=== PATIENT | male | born 1950 | race Two or more races ===

== ENCOUNTER 2025-04-26 06:09 | Day surgery (SDC) | payer OTHER ==
[~2025-04-26] VITALS: Ht 177.8 cm; Wt 81.6 kg
[~2025-04-26 06:09] MED LIST: APIX2.5T PO; CARV25TA55 PO; FURO1TAB33 PO; GABA400C PO; METF-370 PO; OMEP-448 PO; PREG100C PO
[2025-04-26] MEDS ORDERED: ROCURONIUM 10MG/ML 10ML VIAL IV ONE (06:36)
[2025-04-26] MEDS ORDERED: SUCCINYLCHOLINE CHLORIDE 20 MG/ML 10ML VIAL IV ONE (06:36)
[2025-04-26] MEDS ORDERED: VANCOMYCIN HCL 1000 MG VL ONE (06:56)
[2025-04-26] MEDS ORDERED: TRANEXAMIC ACID 20 ML ONE (07:02)
[2025-04-26] MEDS ORDERED: fentaNYL CITRATE 5 ML ONE (07:13)
[2025-04-26] MEDS ORDERED: LIDOCAINE 2% TOPICAL JELLY 5 ML URJT TOP ONE (07:13)
[2025-04-26] MEDS ORDERED: SODIUM CHLORIDE LOCK 50 ML ONE (07:13)
[2025-04-26] MEDS ORDERED: ONDANSETRON HCL 4 MG/2 ML VIAL ONE (07:13)
[2025-04-26] MEDS ORDERED: LIDOCAINE 1% INJ PF 5ML AMP ONE (07:13)
[2025-04-26] MEDS ORDERED: HYDROmorphone HCL 2 MG/ML VL/or syr ONE (07:13)
[2025-04-26] MEDS ORDERED: PROPOFOL 10 MG/ML 20 ML IV ONE (07:13)
[2025-04-26] MEDS ORDERED: MIDAZOLAM HCL 2MG/2ML 2ml VIAL (1mg/ml) ONE (07:13)
[2025-04-26] MEDS ORDERED: fentaNYL CITRATE 100 MCG/2 ML VL ONE (07:13)
--- NOTE | 2025-04-26 07:35 | DVHHP2 ---
History Allergies: Coded Allergies: Penicillins (Unverified Allergy, Unknown, 04/23/25) Sulfa Antibiotics (Unverified Allergy, Unknown, 04/23/25) Zolpidem (Unverified Adverse Reaction, Severe, hallucinations, 04/23/25) Chief Complaint: Lumbar stenosis, Low back pain with neurogenic claudication Present Illness(Onset/Duration Patient is unable to stand for more than 2 minutes at a time due to bilateral leg neuropathies and radicular symptoms right greater than left, he is a demonstrating a staggered gait he is very dizzy with stand doing and he is having excruciating back pain. Noncontributory in case Past Surgical History: Other (Abdominal cancer surgery) Exam Exam General Appearance: No Apparent Distress HEENT: Normal ENT Inspection Neck: None, Other (No complaints of pain or limited range of motion) Respiratory: No Accessory Muscle Use, None, No Respiratory Distress, Other (Patient is speaking in full sentences) Cardiovascular: No Edema, Other (Skin is pink warm and dry) Gastrointestinal: Other (No complaints of nausea vomiting or diarrhea) Extremities: Normal capillary refill, Normal inspection, Normal range of motion, Other (Patient has 5/5 motor strength all four extremities) Neurologic: Alert, Dizziness, Other (Patient does state he gets very dizzy when he stands up this has been happening for many years) Cerebellar Function: Ataxia, Other (Patient states he has difficulty ambulating is related to the excruciating nerve pain in his feet) Reflexes: NOT DONE Skin: Other (Dry skin) Plan Additional comments: Patient arrives today for elective spine surgery with Dr Taiwo Membreno L3-5 posterior spinal decompression and fusion with L3-4, L4-5 posterior spinal interbody fusion with peek cage and bone graft with instrumentation. Patient has already picked up his postoperative medications Patient understands that the goals to discharge are that the patient is eating eating without nausea. drinking fluids without coughing or choking, voiding clear yellow urine, passing gas or having a bowel movement, ambulating safely with or without assistive devices, and patient is able to control pain with oral analgesia only. The risks/benefits/alternatives of surgery were explained to the patient in detail including but not limited to , stroke, paralysis, myocardial infarction, bleeding, infection, complications of anesthesia (dry mouth, sore throat, dental damage, respiratory depression, blindness), postoperative infection, incomplete relief of symptoms, recurrence of symptoms, damage to blood vessels, nerves and tendons, pulmonary embolism and possible need for repeat surgery in the future. Pain, damage to surrounding soft tissue structures, need for reoperation or future surgery, persistent pain/disability/deformity, bone graft collapse or extrusion of interbody device, instrumentation failure, need for instrumentation removal, dural tear, temporary or permanent nerve root damage, deep vein thrombosis, pulmonary embolism, were described to the patient in detail and the patient wishes to proceed. No guarantee of surgical outcome/improvement was implied. All of the questions were answered thoroughly and consents were obtained. Call with questions Shea Alicia [facility] Orthopaedic Spine Surgery nurse practitioner For Dr Lydia Membreno Patient was examined, chart reviewed, labs evaluated, and diagnostic studies and findings analyzed. Case was discussed with Dr. Taiwo Membreno who formulated the plan of care. This medical document was created using an electronic medical record system with [employer] dictation system. Although this document has been carefully reviewed, there might still be some phonetic and typographical errors. These areas are purely typographical due to imperfections of the software programs, and do not reflect any compromise in the patient's medical care. WALKER ALICIA NP Apr 26, 2025 07:35
[2025-04-26 08:10] VITALS: PULSE 70; RESP 13; TEMP 97.5; O2SAT 94
--- NOTE | 2025-04-26 08:21 | DVHOP2 ---
Operative Report - 2 Report Details Date: 04/26/25 Preop Diagnosis: lumbar spinal stenosis Postop Diagnosis: 1. same 2. labile blood pressure Surgeon: Guru Membreno MD Anesthesiologist: dr. flood Anesthesia: General Consent: The patient was informed of the risks and benefits of the procedure. These include but are not limited to complications of anesthesia, postoperative infection, incomplete relief of symptoms, recurrence of symptoms, damage to blood vessels, nerves and tendons, deep venous thrombosis, pulmonary embolism and possible need for repeat surgery in the future. Name of Procedure Performed see detailed note Procedure Details Procedure Details: The gentleman was pre operatively cleared and consented for elective lumbar spine surgery As per protocol, he was taken to the operating rooom and upon intubation before he was even transferred to operating table, his blood pressure fell to below 90mm Hg systolic and dr. Flood had to continuously give him phenylepherine to keep the BP elevated to an acceptable level. With his history of atrial fibrillation and daily nearly one liter per day alcohol usage, the risk of proceeding was unacceptable and the patient was extubated while still on the stretcher and taken to pACU. He will be discharged and require follow up with laster hand to stabilize his medical status. No surgery was performed on this patient. Condition Stable Disposition Home GURU MEMBRENO MD Apr 26, 2025 08:21
[2025-04-26] MEDS ORDERED: SUGAMMADEX 200mg/2ml Vial (100MG/ML) IV ONE (09:01)
[2025-04-26 09:15] VITALS: BP 128/84; PULSE 89; RESP 15; O2SAT 94
[2025-04-26] MEDS ORDERED: FOLIC ACID 1 MG, MAGNESIUM SULF SDV 50% 8 MEQ, MULTIPLE VITAMIN 10 ML, THIAMINE INJ 100... INJ SCH (18:00)
[2025-04-27 10:54] LABS: Hepatitis B Surface Antigen Negative (Negative)
== END 2025-04-26 10:39 | disposition home or self-care (01) ==
LOC: SUR 06:09
PROVIDERS: ATTEND Orthopaedic Surgery
DX: M48.061 Spinal stenosis, lumbar region without neurogenic claudication (principal); Z53.8 Procedure and treatment not carried out for other reasons; I10 Essential (primary) hypertension; I48.91 Unspecified atrial fibrillation; E11.40 Type 2 diabetes mellitus with diabetic neuropathy, unspecified; K21.9 Gastro-esophageal reflux disease without esophagitis; Z79.899 Other long term (current) drug therapy; Z85.028 Personal history of other malignant neoplasm of stomach; Z86.73 Personal history of transient ischemic attack (TIA), and cerebral infarction without residual deficits; Z86.2 Personal history of diseases of the blood and blood-forming organs and certain disorders involving the immune mechanism; Z95.820 Peripheral vascular angioplasty status with implants and grafts; Z98.890 Other specified postprocedural states; Z88.0 Allergy status to penicillin; Z88.2 Allergy status to sulfonamides; Z88.8 Allergy status to other drugs, medicaments and biological substances
CPT/HCPCS: 22633; 36415; 82962; 86703; 86706; 86803; 86850; 86900; 86901; 87340; J0330; J1100; J1171; J1956; J2250; J2405; J2704; J3010; J3373; J7050

== ENCOUNTER 2025-06-05 19:35 | Inpatient (IN) | payer OTHER ==
[~2025-06-05] VITALS: Ht 177.8 cm; Wt 80.6 kg
--- NOTE | 2025-06-05 20:39 | ED.PDOC ---
Back pain HPI HPI Comments 75 y/o M, with PMHx of stomach cancer (12 yrs ago), alcohol abuse presents to the ED for CC of lower back pain, difficulty walking. Patient states, he has been experiencing bilateral lumbar spine pain x2days. Patient relays, pain has been so severe that he has been unable to ambulate, feeling as if he is going to fall down when standing up. Patient reports, being seen at his PCP today (06/05/25), had an outpatient MRI of the lumbar spine on which showed severe spinal canal stenosis. They spoke to Dr. Martin who recommended that the patient come into the emergency department for admission. also stating that he just completed a benzodiazepine taper as he is trying to quit, given were recent heavy alcohol consumption. MRI report shows "There is a fat prominent epidural fat/epidural lipomatosis posteriorly within the lumbar spine". Patient denies any recent trauma, injury, or fall. Denies any bowel or bladder incontinence. States that he typically ambulates on his own without assistance. However, using a wheelchair over the past days due to difficulty with walking. Chief Complaint: Back Pain Time Seen by MD: 20:30 Reviewed Notes: Nurses Notes, Medications, Allergies Allergies: Coded Allergies: Penicillins (Unverified Allergy, Unknown, 04/23/25) Sulfa Antibiotics (Unverified Allergy, Unknown, 04/23/25) Zolpidem (Unverified Adverse Reaction, Severe, hallucinations, 04/23/25) Home Meds Reported Medications Apixaban Base (ELIQUIS) 2.5 Mg Tab, 2.5 MG PO BID, TAB 04/23/25 Omeprazole (Omeprazole Dr) 40 Mg Cap, 40 MG PO DAILY, CAP 04/23/25 Metformin Hydrochloride (Metformin Hcl) 500 Mg Tab, 500 MG PO BID, TAB 04/23/25 Carvedilol (Carvedilol) 25 Mg Tab, 25 MG PO BID, TAB 04/23/25 Furosemide (Lasix) 20 Mg Tb, 20 MG PO DAILY, TAB 04/23/25 Gabapentin (Neurontin) 400 Mg Cap, 800 MG PO TID, CAP 04/23/25 Pregabalin (Lyrica) 100 Mg Cap, 100 MG PO TID, CAP 04/23/25 Information Source: Patient Mode of Arrival: Ambulatory Timing: Days Duration: Since onset Location of Back pain: (B) Lumbar Severity: Moderate Prehospital treatment: None Onset: Spontaneous History of: Chronic Back Pain, Cancer Modifying Factors: Nothing Associated signs and symptoms: None Past Medical History PAST MEDICAL HISTORY: Cancer Surgical History: Denies all surgeries Family History Family History: Unknown Social History Smoker: Non-Smoker Alcohol: Denies ETOH Use Drugs: Denies Drug Use Lives In: Home Constitutional: denies: chills, diaphoresis, fatigue, fever, malaise, sweats, weakness, others EENTM: denies: blurred vision, double vision, ear bleeding, ear discharge, ear drainage, ear pain, ear ringing, eye pain, eye redness, hearing loss, mouth pain, mouth swelling, nasal discharge, nose bleeding, nose congestion, nose pain, photophobia, tearing, throat pain, throat swelling, voice changes, others Respiratory: denies: cough, hemoptysis, orthopnea, SOB at rest, shortness of breath, SOB with excertion, stridor, wheezing, others Cardiovascular: denies: chest pain, dizzy spells, diaphoresis, Dyspnea on exertion, edema, irregular heart beat, left arm pain, lightheadedness, palpitations, PND, syncope, others Gastrointestinal: denies: abdomen distended, abdominal pain, blood streaked bowels, constipated, diarrhea, dysphagia, difficulty swallowing, hematemesis, melena, nausea, poor appetite, poor fluid intake, rectal bleeding, rectal pain, vomiting, others Genitourinary: denies: burning, dysuria, flank pain, frequency, hematuria, incontinence, penile discharge, penile sore, pain, testicle pain, testicle swelling, urgency, others Neurological: denies: dizziness, fainting, headache, left sided numbness, left sided weakness, numbness, paresthesia, pre-existing deficit, right sided numbness, right sided weakness, seizure, speech problems, tingling, tremors, weakness, others Musculoskeletal: reports: back pain; denies: gout, joint pain, joint swelling, muscle pain, muscle stiffness, neck pain, others Integumetry: denies: bruises, change in color, change in hair/nails, dryness, laceration, lesions, lumps, rash, wounds, others Allergic/Immunocompromised: denies: Difficulty Healing, Frequent Infections, Hives, Itching, others Hematologic/Lymphatic: denies: anemia, blood clots, easy bleeding, easy bruising, swollen glands, others Endocrine: denies: excessive hunger, excessive sweating, excessive thirst, excessive urination, flushing, intolerance to cold, intolerance to heat, unexplained weight gain, unexplained weight loss, others Psychiatric: denies: anxiety, bipolar disorder, depression, hopeless, panic disorder, schizophrenia, sleepless, suicidal, others All Other Systems: Reviewed and Negative Physical Exam General Appearance: No Apparent Distress, Normal HEENT: Normal ENT Inspection, Pharynx Normal Neck: Full Range of Motion, Non-Tender, Normal, Normal Inspection Respiratory: Chest Non-Tender, Lungs Clear, No Accessory Muscle Use, No Respiratory Distress, Normal Breath Sounds Cardiovascular: No Edema, No Murmur, No Gallop, Normal Peripheral Pulses, Regular Rate/Rhythm Breast Exam: Deferred Gastrointestinal: No Organomegaly, Non Tender, No Pulsatile Mass, Normal Bowel Sounds, Soft Genitalia: Deferred Pelvic: Deferred Rectal: Deferred Extremities: No calf tenderness, Normal capillary refill, Normal inspection, Normal range of motion, Non-tender, No pedal edema Musculoskeletal : Extremity Location: Back (bilateral lower lumbar parapsinal muscle ttp) Apperance: Normal Neurologic: Alert, manager pricing II-XII nml as Tested, No Motor Deficits, Normal Affect, Normal Mood, No Sensory Deficits Cerebellar Function: Normal Reflexes: Normal Skin: Dry, Normal Color, Warm Lymphatic: No Adenopathy Was a procedure done? Was a procedure done?: No Back Pain Differential Dx Differential Diagnosis: Musculoskeletal Pain, Other (Herniated disc, spinal cord compression, sciatica) X-Ray, Labs, Meds, VS Vital Signs Date Time Temp Pulse Resp B/P (MAP) Pulse Ox O2 Delivery O2 Flow Rate FiO2 06/05/25 21:51 98.2 92 14 111/75 (87) 94 98.2 06/05/25 19:35 97.4 95 16 105/77 95 97.4 Lab Test 06/05/25 20:40 06/05/25 20:31 Range/Units White Blood Count 5.7 4.4-10.8 10^3/uL Red Blood Count 4.49 L 4.5-5.90 10^6/uL Hemoglobin 15.2 13.5-17.5 g/dL Hematocrit 45.4 41.0-53.0 % Mean Corpuscular Volume 101.1 H 80.0-100.0 fL Mean Corpuscular Hemoglobin 33.8 H 28.0-32.0 pg Mean Corpuscular Hemoglobin Concent 33.4 32.0-36.0 g/dL Red Cell Distribution Width 15.9 H 11.8-14.3 % Platelet Count 182 140-450 10^3/uL Mean Platelet Volume 9.2 6.9-10.8 fL Neutrophils (%) (Auto) 59.0 37.0-80.0 % Lymphocytes (%) (Auto) 24.4 10.0-50.0 % Monocytes (%) (Auto) 11.0 0.0-12.0 % Eosinophils (%) (Auto) 4.9 0.0-7.0 % Basophils (%) (Auto) 0.7 0.0-2.0 % Neutrophils # (Auto) 3.4 1.6-8.6 10 ^3/uL Lymphocytes # (Auto) 1.4 0.4-5.4 10 ^3/uL Monocytes # (Auto) 0.6 0-1.3 10 ^3/uL Eosinophils # (Auto) 0.3 0-0.8 10 ^3/uL Basophils # (Auto) 0 0-0.2 10 ^3/uL Nucleated Red Blood Cells 0.1 % Sodium Level 140 136-145 mmol/L Potassium Level 3.7 3.5-5.1 mmol/L Chloride Level 99 98-107 mmol/L Carbon Dioxide Level 27 20-31 mmol/L Anion Gap 14 5-15 Blood Urea Nitrogen 13 9-23 mg/dL Creatinine 1.11 0.700-1.30 mg/dL Glomerular Filtration Rate Calc 69 >90 mL/min BUN/Creatinine Ratio 11.7 10.0-20.0 Serum Glucose 140 H 74-106 mg/dL Calcium Level 9.7 8.7-10.4 mg/dL Urine Color Pending Urine Clarity Pending Urine pH Pending Urine Specific [place] Pending Urine Protein Pending Urine Ketones Pending Urine Blood Pending Urine Nitrite Pending Urine Bilirubin Pending Urine Urobilinogen Pending Urine Leukocyte Esterase Pending Urine RBC Pending Urine Microscopic WBC Pending Urine Squamous Epithelial Cells Pending Urine Bacteria Pending Urine Glucose Pending Time of 1ST Reevaluation: 21:00 Reevaluation 1ST: Unchanged Patient Education/Counseling: Diagnosis, Treatment Family Education/Counseling: Diagnosis, Treatment SEPSIS Sepsis Screen Date sepsis recognized/suspect: Jun 05, 2025 Time Sepsis recognized/suspect: 1934 Recent Procedure: No On Antibiotic Therapy: No Respiratory Rate >20: No Heart Rate >90: No Temp<36 C (96.8 F) or >38.3 C: No SBP <90 or MAP <65 mmHG: No New Acute Mental Status Change: No Is the patient on CPAP, BIPAP,: No Physician Orders Urinalysis (06/05/25 20:31) Vital Signs Date Time Temp Pulse Resp B/P (MAP) Pulse Ox O2 Delivery O2 Flow Rate FiO2 06/05/25 21:51 98.2 92 14 111/75 (87) 94 98.2 06/05/25 19:35 97.4 95 16 105/77 95 97.4 Laboratory Tests Test 06/05/25 20:40 White Blood Count 5.7 10^3/uL (4.4-10.8) Departure 1 Departure Time of Disposition: 22:07 (75-year-old male with past medical history of alcohol abuse, distant gastric cancer who is now presenting for lower back pain, difficulty walking over the past few days. Patient has no bowel or bladder incontinence. Is able to lift his legs off the wheelchair, however, difficulty with standing upright on his own. An MRI of the lumbar spine was performed which shows that the patient has prominent fat, possible lipomatosis causing severe spinal canal stenosis in the lumbar spine. This could explain the patient's symptoms. Was already evaluated earlier today at an urgent care when he had the MRI , they discussed this with Dr. Martin who recommended that the patient come to the hospital for evaluation, admission. Patient will be admitted for further workup and management. Discussed the case for admission with Beny Adamson.) Impression: Primary Impression: Lumbar sprain Additional Impressions: Difficulty walking Lumbar spinal stenosis Disposition: ADMITTED INPATIENT Admit to: Med Surg Condition: Stable Critical Care Note Critical Care Time?: No Stability Stability form required: No Heart Score Heart Score: Heart Score Response (Comments) Value History N/A 0 EKG N/A 0 Age N/A 0 Risk Factors N/A 0 Troponin N/A 0 Total 0 I personally scribed for ISAURA BLACKBURN MD ([email or web address]) on 06/05/25 at 20:39. Electronically submitted by Bárbara Michele ([email or web address]). ISAURA BLACKBURN MD Jun 05, 2025 20:39
[2025-06-05 21:23] LABS: Hematocrit 45.4 % (41.0-53.0); Hemoglobin 15.2 g/dL (13.5-17.5); Mean Corpuscular Hemoglobin 33.8 pg (28.0-32.0); Mean Corpuscular Volume 101.1 fL (80.0-100.0); Nucleated Red Blood Cells % 0.1 %
[2025-06-05 21:27] LABS: Chloride 99 mmol/L (98-107); Potassium 3.7 mmol/L (3.5-5.1); Sodium 140 mmol/L (136-145)
[2025-06-05 21:28] LABS: Anion Gap 14 (5-15); Carbon Dioxide 27 mmol/L (20-31)
[2025-06-05 21:29] LABS: Calcium 9.7 mg/dL (8.7-10.4)
[2025-06-05 21:34] LABS: BUN/Creatinine Ratio 11.7 (10.0-20.0); Blood Urea Nitrogen 13 mg/dL (9-23); Glucose 140 mg/dL (74-106)
[2025-06-05 23:45] LABS: Urine Protein, UAD TRACE (Negative)
[2025-06-06] VITALS (9 sets, daily range): BP systolic 94–135; BP diastolic 60–82; PULSE 70–94; RESP 16–18; TEMP 97.2–98.6; O2SAT 85–97
[2025-06-06] MEDS ORDERED: NITROGLYCERIN 0.4 MG SL TAB SL PRN (00:45)
[2025-06-06] MEDS ORDERED: DEXTROSE (50%) 50ML SYRG IV PRN (00:45)
[2025-06-06] MEDS ORDERED: ONDANSETRON HCL 4 MG/2 ML VIAL IV PRN (00:45)
[2025-06-06] MEDS ORDERED: ACETAMINOPHEN 325 MG TAB PO PRN (00:45)
[2025-06-06] MEDS ORDERED: MORPHINE SULFATE INJ 2 MG/ml SYRG IV PRN (00:45)
[2025-06-06] MEDS ORDERED: HYDROcodone-ACET 5/325MG TAB PO PRN (00:45)
[2025-06-06] MEDS ORDERED: DOCUSATE SOD 100 MG CAP PO PRN (00:45)
--- NOTE | 2025-06-06 03:47 | DVHHP2 ---
MARIEL NAVARRO JAVA DEVELOPER WITH SECURITY CLEARANCE 06/06/25 0347: History of Present Illness Reason for Visit: Back pain with generalized weakness History of Present Illness 75-year-old male with past medical history of alcohol dependence, AFib on Eliquis, hypertension, chronic back pain presents with complaints of generalized weakness worsening over the previous 3 days. Patient endorses he is having difficulty standing up in being able to walk. Patient was recently scheduled for lumbar spine surgery on April 26, 2025. However became hemodynamically unstable on the surgical table and procedure was canceled. Patient went to urgent care earlier in the day were imaging found epidural lipomatosis within the lumbar spine causing severe spinal canal stenosis L3-L4, moderate spinal canal stenosis L4-L5, moderate spinal canal stenosis L2-L3. During the emergency department evaluation CBC is unremarkable. CMP is unremarkable. Patient endorses that the last time he took a drink was the morning before going to urgent care. Normally drinks vodka. At this time the patient is using wheelchair to be able to get around. There are no complaints of fevers, chills, confusion, dizziness, syncope, chest pain, palpitations, nausea, vomiting, abdominal pain, bowel or urinary incontinence, recent traumatic injury, falls. Cardiovascular: AFIB, CAD, CHF, HTN, hyperipidemia Musculoskeletal: Chronic low back pain Endocrine: Diabetes Smoke: Quit ALCOHOL: heavy Drugs: None Lives: with Family Review of Systems Constitutional: Yes: Weakness; No: Fever, Chills, Sweats, Malaise, Other Eyes: No: Pain, Vision change, Conjunctivae inflammation, Eyelid inflammation, Other, Redness ENT: No: Ear pain, Ear discharge, Nose pain, Nose discharge, Nose congestion, Mouth pain, Mouth swelling, Throat pain, Throat swelling, Other Respiratory: No: Cough, Dry, Shortness of breath, SOB with excertion, Wheezing, Hemoptysis, Pleuritic Pain, Sputum, Wheezing, Other Cardiovascular: No: Chest Pain, Palpitations, Orthopnea, Paroxysmal Noc. Dyspnea, Edema, Lt Headedness, Other Gastrointestinal: No: Nausea, Vomiting, Abdominal Pain, Diarrhea, Constipation, Melena, Hematochezia, Other Genitourinary: No Dysuria, No Frequency, No Incontinence, No Hematuria, No Retention, No Other Musculoskeletal: back pain; No: other, neck pain, shoulder pain, arm pain, hand pain, leg pain, foot pain Skin: No: Rash, Lesions, Jaundice, Bruising, Other Neurological: No: Weakness, Numbness, Incoordination, Change in speech, Conf usion, Seizures, Other Allergies: Coded Allergies: Penicillins (Unverified Allergy, Unknown, 04/23/25) Sulfa Antibiotics (Unverified Allergy, Unknown, 04/23/25) Zolpidem (Unverified Adverse Reaction, Severe, hallucinations, 04/23/25) Medications Current Medications Medications Dose Ordered Sig/Dorita Route Start Time Stop Time Status Last Admin Dose Admin Docusate Sodium 100 mg BIDPRN PRN PO 06/06/25 00:45 Acetaminophen 650 mg Q6HP PRN PO 06/06/25 00:45 Acetaminophen/ Hydrocodone Bitart 1 tab Q6HP PRN PO 06/06/25 00:45 Ondansetron HCl 4 mg Q4HP PRN IV 06/06/25 00:45 Enoxaparin Sodium 40 mg DAILY SC 06/06/25 10:00 Nitroglycerin 0.4 mg Q5MINP PRN SL 06/06/25 00:45 Morphine Sulfate 2 mg Q30M PRN IV 06/06/25 00:45 Folic Acid 1 mg/ Multivitamins 10 ml/Magnesium Sulfate 8 meq/ Thiamine HCl 100 mg/Dextrose 1,013.2 ml @ 100.001 mls/hr DAILY@1800 INJ 06/06/25 18:00 Chlordiazepoxide HCl 50 mg Q8H PO 06/06/25 01:00 06/06/25 17:01 06/06/25 01:29 50 MG Chlordiazepoxide HCl 50 mg Q12HR PO 06/07/25 10:00 06/07/25 22:01 Chlordiazepoxide HCl 25 mg Q12HR PO 06/08/25 10:00 06/08/25 22:01 Chlordiazepoxide HCl 25 mg QAM PO 06/09/25 07:00 06/09/25 07:01 Gabapentin 300 mg TID PO 06/06/25 06:00 Diagnostic Test (Pha) 1 strip ACHS 06/06/25 07:00 Insulin Human Regular ACHS SC 06/06/25 07:00 Dextrose 50 ml UD PRN IV 06/06/25 00:45 Exam Vital Signs Vital Signs Date Time Temp Pulse Resp B/P (MAP) Pulse Ox O2 Delivery O2 Flow Rate FiO2 06/06/25 02:46 Room Air* 0 21 06/06/25 01:09 98.4 86 14 129/80 (96) 95 98.4 Labs/Xrays Labs Test 06/05/25 20:40 06/05/25 20:31 Range/Units White Blood Count 5.7 4.4-10.8 10^3/uL Red Blood Count 4.49 L 4.5-5.90 10^6/uL Hemoglobin 15.2 13.5-17.5 g/dL Hematocrit 45.4 41.0-53.0 % Mean Corpuscular Volume 101.1 H 80.0-100.0 fL Mean Corpuscular Hemoglobin 33.8 H 28.0-32.0 pg Mean Corpuscular Hemoglobin Concent 33.4 32.0-36.0 g/dL Red Cell Distribution Width 15.9 H 11.8-14.3 % Platelet Count 182 140-450 10^3/uL Mean Platelet Volume 9.2 6.9-10.8 fL Neutrophils (%) (Auto) 59.0 37.0-80.0 % Lymphocytes (%) (Auto) 24.4 10.0-50.0 % Monocytes (%) (Auto) 11.0 0.0-12.0 % Eosinophils (%) (Auto) 4.9 0.0-7.0 % Basophils (%) (Auto) 0.7 0.0-2.0 % Neutrophils # (Auto) 3.4 1.6-8.6 10 ^3/uL Lymphocytes # (Auto) 1.4 0.4-5.4 10 ^3/uL Monocytes # (Auto) 0.6 0-1.3 10 ^3/uL Eosinophils # (Auto) 0.3 0-0.8 10 ^3/uL Basophils # (Auto) 0 0-0.2 10 ^3/uL Nucleated Red Blood Cells 0.1 % Sodium Level 140 136-145 mmol/L Potassium Level 3.7 3.5-5.1 mmol/L Chloride Level 99 98-107 mmol/L Carbon Dioxide Level 27 20-31 mmol/L Anion Gap 14 5-15 Blood Urea Nitrogen 13 9-23 mg/dL Creatinine 1.11 0.700-1.30 mg/dL Glomerular Filtration Rate Calc 69 >90 mL/min BUN/Creatinine Ratio 11.7 10.0-20.0 Serum Glucose 140 H 74-106 mg/dL Calcium Level 9.7 8.7-10.4 mg/dL Urine Color Yellow Yellow Urine Clarity Clear Clear Urine pH 5.5 5.0-9.0 Urine Specific [place] 1.026 1.001-1.035 Urine Protein Trace H Negative Urine Ketones Negative Negative Urine Blood Negative Negative /uL Urine Nitrite Negative Negative Urine Bilirubin Negative Negative Urine Urobilinogen 6 Negative mg/dL Urine Leukocyte Esterase Trace Negative /uL Urine RBC None seen 0 - 3 /hpf Urine Microscopic WBC 5 H 0-3 /HPF Urine Squamous Epithelial Cells Few <5 /hpf Urine Bacteria None seen None Seen /hpf Urine Glucose Normal Normal mg/dL SEPSIS Sepsis Screen Date sepsis recognized/suspect: Jun 05, 2025 Time Sepsis recognized/suspect: 1934 Recent Procedure: No On Antibiotic Therapy: No Respiratory Rate >20: No Heart Rate >90: No Temp<36 C (96.8 F) or >38.3 C: No SBP <90 or MAP <65 mmHG: No New Acute Mental Status Change: No Is the patient on CPAP, BIPAP,: No Physician Orders Admit (06/06/25 00:37) Code Status (06/06/25 00:37) Vital Signs .PER UNIT PROTOCOL (06/06/25 00:37) Review Orders With Adm. (06/06/25 00:37) Encourage Activity As Tolerate (06/06/25 00:37) Npo (Nothing By Mouth) Diet (06/06/25 Breakfast) Oxygen By Face Mask (06/06/25 00:37) Docusate Sodium Capsule (Colace Capsule) (06/06/25 00:45) Acetaminophen Tablet (Tylenol Tablet) (06/06/25 00:45) Notify Md Of Changes From Base (06/06/25 00:37) Advance Directive (06/06/25 00:37) Basic Metabolic Panel (06/06/25 05:00) Basic Metabolic Panel (06/07/25 05:00) Basic Metabolic Panel (06/08/25 05:00) Basic Metabolic Panel (06/09/25 05:00) Basic Metabolic Panel (06/10/25 05:00) Complete Blood Count (06/06/25 05:00) Complete Blood Count (06/07/25 05:00) Complete Blood Count (06/08/25 05:00) Complete Blood Count (06/09/25 05:00) Complete Blood Count (06/10/25 05:00) Patient Condition (06/06/25 00:37) Allergies (06/06/25 00:37) Hydrocodone-Acet 5/325mg Tab (Marshall 5/32 (06/06/25 00:45) Ondansetron Hcl (Zofran) (06/06/25 00:45) Enoxaparin Sodium (Lovenox) (06/06/25 10:00) Sequential Compression Device (06/06/25 ) Nitroglycerin Sublingual (Ntrostat Subli (06/06/25 00:45) Morphine Sulfate Injection (06/06/25 00:45) Stat Ekg For Chest Pain (06/06/25 00:37) Notify Md Of Changes From Base (06/06/25 00:37) Silo Erector For 24 Hours (06/06/25 00:37) Emergency Dysrhythmia Protocol (06/06/25 00:37) Rhythm Strips Once Every Shift (06/06/25 00:37) Oxygen By Nasal Cannula (06/06/25 00:37) Folic Acid... (06/06/25 18:00) Chlordiazepoxide Hcl Capsule (Librium Ca (06/06/25 01:00) Chlordiazepoxide Hcl Capsule (Librium Ca (06/07/25 10:00) Chlordiazepoxide Hcl Capsule (Librium Ca (06/08/25 10:00) Chlordiazepoxide Hcl Capsule (Librium Ca (06/09/25 07:00) Gabapentin Capsule (Neurontin Capsule) (06/06/25 06:00) Glucose Blood (Accu-Chek Comfort Curve T (06/06/25 07:00) Insulin R (Human) (Insulin R) (06/06/25 07:00) Dextrose 50% Syringe (06/06/25 00:45) * Orthopedic Consult (06/06/25 00:37) Lumbar Spine Wo Contrast (06/06/25 00:37) Furosemide Tablet (Lasix Tablet) (06/06/25 10:00) Apixaban (Eliquis) (06/06/25 10:00) Pantoprazole (Protonix) (06/06/25 10:00) Carvedilol Tablet (Coreg Tablet) (06/06/25 10:00) Vital Signs Date Time Temp Pulse Resp B/P (MAP) Pulse Ox O2 Delivery O2 Flow Rate FiO2 06/06/25 02:46 Room Air* 0 21 06/06/25 01:09 98.4 86 14 129/80 (96) 95 98.4 06/05/25 21:51 98.2 92 14 111/75 (87) 94 98.2 Laboratory Tests Test 06/05/25 20:40 White Blood Count 5.7 10^3/uL (4.4-10.8) Medications Medications Dose Ordered Sig/Dorita Route Start Time Stop Time Status Last Admin Dose Admin Chlordiazepoxide HCl 50 mg Q8H PO 06/06/25 01:00 06/06/25 17:01 06/06/25 01:29 50 MG Assessment/Plan Assessment/Plan Epidural lipomatosis within the lumbar spine Severe spinal canal stenosis, L3 to L4 Moderate spinal canal stenosis, L4 to L5 Moderate spinal canal stenosis, L2 to L3 Generalized weakness Alcohol dependent Hx Afib Plan Admit telemetry Consult spinal surgeon MRI L Spine Monitor for alcohol withdrawal. Banana bag. Librium taper. Seizure precautions. Continue home medication GI ppx protonix / DVT ppx on eliquis Plan discussed with: Patient, Spouse My Orders Orders - MARIEL NAVARRO NP Procedure Category Date Status Time Admit ADMIT 06/06/25 Transmitted 00:37 Code Status CODE 06/06/25 Transmitted 00:37 Vital Signs SUZY 06/06/25 In Process 00:37 Review Orders With SUZY 06/06/25 In Process . 00:37 Encourage Activity As SUZY 06/06/25 In Process Tolerate 00:37 Npo (Nothing By DIET 06/06/25 Transmitted Mouth) Diet Breakfast Oxygen By Face Mask RT 06/06/25 Transmitted 00:37 Docusate Sodium PHA 06/06/25 In Process Capsule (Colace 00:45 Acetaminophen Tablet PHA 06/06/25 In Process (Tylenol Tablet) 00:45 Notify Of Changes SUZY 06/06/25 In Process From Base 00:37 Advance Directive SUZY 06/06/25 In Process 00:37 Basic Metabolic Panel LAB 06/06/25 Logged 05:00 Basic Metabolic Panel LAB 06/07/25 Verified 05:00 Basic Metabolic Panel LAB 06/08/25 Verified 05:00 Basic Metabolic Panel LAB 06/09/25 Verified 05:00 Basic Metabolic Panel LAB 06/10/25 Verified 05:00 Complete Blood Count LAB 06/06/25 Logged 05:00 Complete Blood Count LAB 06/07/25 Verified 05:00 Complete Blood Count LAB 06/08/25 Verified 05:00 Complete Blood Count LAB 06/09/25 Verified 05:00 Complete Blood Count LAB 06/10/25 Verified 05:00 Patient Condition ORDERS 06/06/25 Transmitted 00:37 Allergies SUZY 06/06/25 In Process 00:37 Hydrocodone-Acet PHA 06/06/25 In Process 5/325mg Tab (Marshall 00:45 Ondansetron Hcl PHA 06/06/25 In Process (Zofran) 00:45 Enoxaparin Sodium PHA 06/06/25 In Process (Lovenox) 10:00 Sequential SUZY 06/06/25 In Process Compression Device Nitroglycerin PHA 06/06/25 In Process Sublingual (Ntrostat 00:45 Morphine Sulfate PHA 06/06/25 In Process Injection 00:45 Stat Ekg For Chest SUZY 06/06/25 In Process Pain 00:37 Notify Md Of Changes SUZY 06/06/25 In Process From Base 00:37 Silo Erector For SUZY 06/06/25 In Process 24 Hours 00:37 Emergency Dysrhythmia SUZY 06/06/25 In Process Protocol 00:37 Rhythm Strips Once SUZY 06/06/25 In Process Every Shift 00:37 Oxygen By Nasal RT 06/06/25 Transmitted Cannula 00:37 Folic Acid... PHA 06/06/25 In Process 18:00 Chlordiazepoxide Hcl PHA 06/06/25 In Process Capsule (Librium Ca 01:00 Chlordiazepoxide Hcl PHA 06/07/25 In Process Capsule (Librium Ca 10:00 Chlordiazepoxide Hcl PHA 06/08/25 In Process Capsule (Librium Ca 10:00 Chlordiazepoxide Hcl PHA 06/09/25 In Process Capsule (Librium Ca 07:00 Gabapentin Capsule PHA 06/06/25 In Process (Neurontin Capsule) 06:00 Glucose Blood PHA 06/06/25 In Process (Accu-Chek Comfort 07:00 Insulin R (Human) PHA 06/06/25 In Process (Insulin R) 07:00 Dextrose 50% Syringe PHA 06/06/25 In Process 00:45 * Orthopedic Consult CONS 06/06/25 Transmitted 00:37 Lumbar Spine Wo MRI 06/06/25 Logged Contrast 00:37 Furosemide Tablet PHA 06/06/25 Transmitted (Lasix Tablet) 10:00 Apixaban (Eliquis) PHA 06/06/25 Transmitted 10:00 Pantoprazole PHA 06/06/25 Transmitted (Protonix) 10:00 Carvedilol Tablet PHA 06/06/25 Transmitted (Coreg Tablet) 10:00 Date of Service: Jun 06, 2025 Billing Provider: AMAYA ABREU MD Common Visit Codes: NOT BILLABLE AMAYA ABREU MD 06/06/25 1331: Review of Systems Allergies: Coded Allergies: Penicillins (Unverified Allergy, Unknown, 04/23/25) Sulfa Antibiotics (Unverified Allergy, Unknown, 04/23/25) Zolpidem (Unverified Adverse Reaction, Severe, hallucinations, 04/23/25) Additional Comments Additional Comments Additional Comments Patient's chart is reviewed and discussed with the nurse practitioner. His previous records from this hospital is also reviewed. Patient is seen evaluated and admitted by nurse practitioner equipment validation specialist. I agree with his evaluation, documentation, assessment and care plan as outlined. Meantime I will hold Eliquis and have preop cardiac evaluation and echocardiogram to prepare him for possible lumbar spine surgery. MARIEL NAVARRO NP Jun 06, 2025 03:47 AMAYA ABREU MD Jun 06, 2025 13:31
[2025-06-06] MEDS: GABAPENTIN 300 MG CAP PO SCH (06:00)
[2025-06-06] MEDS: InsuLIN REG 1unit/0.01ml Soln (100units/ml) SC SCH (06:18)
[2025-06-06] MEDS: ACCU-CHEK COMFORT CURVE STRIP VI SCH (06:18)
[2025-06-06 08:29] LABS: Hemoglobin 13.9 g/dL (13.5-17.5); Nucleated Red Blood Cells % 0.2 %
[2025-06-06 08:31] LABS: Hematocrit 41.3 % (41.0-53.0); Mean Corpuscular Hemoglobin 34.2 pg (28.0-32.0); Mean Corpuscular Volume 101.3 fL (80.0-100.0)
[2025-06-06 08:42] LABS: Chloride 99 mmol/L (98-107); Potassium 3.6 mmol/L (3.5-5.1); Sodium 140 mmol/L (136-145)
[2025-06-06 08:43] LABS: Anion Gap 11 (5-15); Carbon Dioxide 30 mmol/L (20-31)
[2025-06-06 08:44] LABS: Calcium 9.4 mg/dL (8.7-10.4)
[2025-06-06 08:49] LABS: BUN/Creatinine Ratio 13.0 (10.0-20.0); Blood Urea Nitrogen 14 mg/dL (9-23); Glucose 129 mg/dL (74-106)
[2025-06-06] MEDS: APIXABAN 2.5 MG TAB PO SCH (10:00)
[2025-06-06] MEDS: CARVEDILOL 12.5 MG TAB PO SCH (10:00)
[2025-06-06] MEDS ORDERED: ENOXAPARIN SOD 40 MG/0.4 ML SYRINGE SC SCH (10:00)
[2025-06-06] MEDS: PANTOPRAZOLE 40 MG/10 ML VIAL INJ IV SCH (10:37)
[2025-06-06] MEDS: FUROSEMIDE 20 MG TAB PO SCH (11:18)
[2025-06-06] MEDS: POTASSIUM CHL 20 Meq TABLET PO ONE (13:10)
[2025-06-06] MEDS: THIAMINE 100mg/ml INJ (200mg/2ml VIAL) IV ONE (13:10)
--- NOTE | 2025-06-06 14:46 | DVH ---
PROCEDURE: MRI LUMBAR SPINE WO CONTRAST Indication: spinal stenosis COMPARISON: MR LUMBAR SPINE WO/W on DOS: 06/05/25 TECHNIQUE: Multiplanar multisequence images of the the lumbar spine are obtained. FINDINGS: For the purpose of this examination, there are 5 lumbar vertebral body types counting from the lumbosacral junction. The lumbar vertebral body heights are maintained. There is moderate multilevel disc space narrowing and desiccation. No abnormal marrow edema. Conus terminates at the L1 level. There is prominent posterior epidural fat. Alignment is grossly preserved. 9 mm L2 vertebral body hemangioma. Are T12-L1: 3 mm disc protrusion. Mild facet and flavum hypertrophy. No spinal canal stenosis. Mild bilateral neural foraminal stenosis. L1-2: 2 mm disc protrusion. Mild facet and flavum hypertrophy. No spinal canal stenosis. Mild bilateral neural foraminal stenosis. L2-3: 3 mm disc protrusion. [id number]-fn-awrrpmuj facet and flavum hypertrophy pick. There is prominent posterior epidural fat. Thecal sac measures 7 mm AP. Moderate spinal canal stenosis. Mild bilateral neural foraminal stenosis. L3-4: 3 mm disc protrusion. Moderate facet and flavum hypertrophy. There is prominent posterior epidural fat. Thecal sac measures 6 mm AP. Moderate to severe spinal canal stenosis. Moderate bilateral neural foraminal stenosis. L4-5: 3 mm disc protrusion. Moderate to severe facet and flavum hypertrophy. Thecal sac measures 7 mm AP. Moderate spinal canal stenosis. Moderate bilateral neural foraminal stenosis, [id number]-zver-right. L5-S1: 3 mm disc protrusion. Jhve-dx-onqexgea facet and flavum hypertrophy. No spinal canal stenosis. Lujg-rk-[id number] bilateral neural foraminal stenosis. IMPRESSION: Moderate lumbar degenerative disc disease. Prominent posterior epidural fat as described above. Moderate to severe spinal canal stenosis L3-4. Moderate spinal canal stenosis at L2-3, L4-5. Multilevel neural foraminal stenosis as described.
[2025-06-06] MEDS: FOLIC ACID 1 MG, MULTIPLE VITAMIN 10 ML, MAGNESIUM SULF SDV 50% 8 MEQ, THIAMINE INJ 100... INJ SCH (17:14)
[2025-06-07] VITALS (8 sets, daily range): BP systolic 92–138; BP diastolic 44–67; PULSE 59–87; RESP 13–19; TEMP 97–97.9; O2SAT 93–95
[2025-06-07 06:55] LABS: Hematocrit 45.1 % (41.0-53.0); Hemoglobin 15.1 g/dL (13.5-17.5); Mean Corpuscular Hemoglobin 34.0 pg (28.0-32.0); Mean Corpuscular Volume 101.4 fL (80.0-100.0); Nucleated Red Blood Cells % 0.2 %
--- NOTE | 2025-06-07 08:20 | DVHINCON2 ---
Consultation - Spinal Surgery Date Seen: Jun 07, 2025 Referring Physician Referring Physician admitting doctor History of Present Illness History of Present Illness This unfortunate patient was seen in our clinic and arrangements made for elective lumbar spine surgery However , upon intubation,his BP immediately fell to dangerous levels and the surgery had to be stopped and the patient immediately extubated He has severe cardiomyopathy, likely dilated due to the fact the patient states he drinks a 5th of hard alcohol daily and has no plans to stop. he has a history of severe lumbar spinal stenosis with neurogenic claudication and his current symptoms ae consistent with the historical ones. no new symptoms relative to the day his surgery was aborted Allergies and medications Allergies: Coded Allergies: Penicillins (Unverified Allergy, Unknown, 04/23/25) Sulfa Antibiotics (Unverified Allergy, Unknown, 04/23/25) Zolpidem (Unverified Adverse Reaction, Severe, hallucinations, 04/23/25) Home Meds Reported Medications Apixaban Base (ELIQUIS) 2.5 Mg Tab, 2.5 MG PO BID, TAB 04/23/25 Omeprazole (Omeprazole Dr) 40 Mg Cap, 40 MG PO DAILY, CAP 04/23/25 Metformin Hydrochloride (Metformin Hcl) 500 Mg Tab, 500 MG PO BID, TAB 04/23/25 Carvedilol (Carvedilol) 25 Mg Tab, 25 MG PO BID, TAB 04/23/25 Furosemide (Lasix) 20 Mg Tb, 20 MG PO DAILY, TAB 04/23/25 Gabapentin (Neurontin) 400 Mg Cap, 800 MG PO TID, CAP 04/23/25 Pregabalin (Lyrica) 100 Mg Cap, 100 MG PO TID, CAP 04/23/25 Review of systems Review of Systems: HEENT:Normal, HEENT:Abnormal, CVS:Normal, CVS:Abnormal, RE SPIRATORY:Abnormal, GI:Abnormal, :Abnormal, MSK:Abnormal, NEURO:Abnormal Examination Vital signs Vital Signs Date Time Temp Pulse Resp B/P (MAP) Pulse Ox O2 Delivery O2 Flow Rate FiO2 06/07/25 05:00 97.4 82 19 101/65 (77) 94 97.4 06/06/25 20:00 Room Air* 0 21 Medications Current Medications Medications (Trade) Dose Ordered Sig/Dorita Route PRN Reason Start Time Stop Time Status Last Admin Enoxaparin Sodium (Lovenox) 40 mg DAILY SC 06/06/25 10:00 06/06/25 03:39 DC Folic Acid 1 mg/ Multivitamins 10 ml/Magnesium Sulfate 8 meq/ Thiamine HCl 100 mg/Dextrose 1,013.2 ml @ 100.001 mls/hr DAILY@1800 INJ 06/06/25 18:00 06/06/25 17:14 Chlordiazepoxide HCl (Librium Capsule) 50 mg Q12HR PO 06/07/25 10:00 06/07/25 22:01 Chlordiazepoxide HCl (Librium Capsule) 25 mg Q12HR PO 06/08/25 10:00 06/08/25 22:01 Chlordiazepoxide HCl (Librium Capsule) 25 mg QAM PO 06/09/25 07:00 06/09/25 07:01 Furosemide (Lasix Tablet) 20 mg DAILY PO 06/06/25 10:00 06/06/25 11:18 Apixaban (Eliquis) 2.5 mg BID PO 06/06/25 10:00 06/06/25 11:46 DC Pantoprazole Sodium (Protonix) 40 mg DAILY IV 06/06/25 10:00 06/06/25 10:37 Carvedilol (Coreg Tablet) 25 mg Q12HR PO 06/06/25 10:00 06/06/25 22:00 Thiamine HCl 100 mg DAILY PO 06/07/25 10:00 Multivitamins (Mvi Tab) 1 tab DAILY PO 06/07/25 10:00 Potassium Chloride (Klor-Con Tablet) 8 meq DAILY PO 06/07/25 10:00 Laboratory [place] [address] Ph: [phone] DIAGNOSTIC IMAGING Diagnostic Imaging Report : [id number] Signed PATIENT: BALAJI ROSENBAUM ACCT: [id number] UNIT: [id number] : 1950 LOC: [facility] AGE / SEX: 75 / M ADM STATUS: ADM IN SERVICE ORDERING PHYSICIAN: MARIEL NAVARRO NP PROCEDURE(s): MSL - LUMBAR SPINE WO CONTRAST REASON: spinal stenosis ORDER NUMBER(s): [id number], ACCESSION NUMBER(s): [id number] PROCEDURE: MRI LUMBAR SPINE WO CONTRAST Indication: spinal stenosis COMPARISON: MR LUMBAR SPINE WO/W on DOS: 06/05/25 TECHNIQUE: Multiplanar multisequence images of the the lumbar spine are obtained. FINDINGS: For the purpose of this examination, there are 5 lumbar vertebral body types counting from the lumbosacral junction. The lumbar vertebral body heights are maintained. There is moderate multilevel disc space narrowing and desiccation. No abnormal marrow edema. Conus terminates at the L1 level. There is prominent posterior epidural fat. Alignment is grossly preserved. 9 mm L2 vertebral body hemangioma. Are T12-L1: 3 mm disc protrusion. Mild facet and flavum hypertrophy. No spinal canal stenosis. Mild bilateral neural foraminal stenosis. L1-2: 2 mm disc protrusion. Mild facet and flavum hypertrophy. No spinal canal stenosis. Mild bilateral neural foraminal stenosis. L2-3: 3 mm disc protrusion. Xjmg-hq-xkhwekbd facet and flavum hypertrophy pick. There is prominent posterior epidural fat. Thecal sac measures 7 mm AP. Moderate spinal canal stenosis. Mild bilateral neural foraminal stenosis. L3-4: 3 mm disc protrusion. Moderate facet and flavum hypertrophy. There is pr ominent posterior epidural fat. Thecal sac measures 6 mm AP. Moderate to severe spinal canal stenosis. Moderate bilateral neural foraminal stenosis. L4-5: 3 mm disc protrusion. Moderate to severe facet and flavum hypertrophy. Thecal sac measures 7 mm AP. Moderate spinal canal stenosis. Moderate bilateral neural foraminal stenosis, ffpb-wadxkrq-huko-right. L5-S1: 3 mm disc protrusion. Ncyc-uv-xhiihorl facet and flavum hypertrophy. No spinal canal stenosis. Iglj-gs-jpgkrnso bilateral neural foraminal stenosis. IMPRESSION: Moderate lumbar degenerative disc disease. Prominent posterior epidural fat as described above. Moderate to severe spinal canal stenosis L3-4. Moderate spinal canal stenosis at L2-3, L4-5. Multilevel neural foraminal stenosis as described. ATED BY: NURIA HARTMANN MD DICTATED DATE/TIME: 06/06/25 1449 SIGNED BY: NURIA HARTMANN MD SIGNED DATE/TIME: 06/06/25 1449 CC: Labs Test 06/07/25 06:16 06/07/25 04:42 06/06/25 07:18 06/05/25 20:31 Range/Units White Blood Count 6.1 4.4-10.8 10^3/uL Red Blood Count 4.45 L 4.5-5.90 10^6/uL Hemoglobin 15.1 13.5-17.5 g/dL Hematocrit 45.1 41.0-53.0 % Mean Corpuscular Volume 101.4 H 80.0-100.0 fL Mean Corpuscular Hemoglobin 34.0 H 28.0-32.0 pg Mean Corpuscular Hemoglobin Concent 33.5 32.0-36.0 g/dL Red Cell Distribution Width 15.6 H 11.8-14.3 % Platelet Count 164 140-450 10^3/uL Mean Platelet Volume 9.2 6.9-10.8 fL Neutrophils (%) (Auto) 57.4 37.0-80.0 % Lymphocytes (%) (Auto) 21.7 10.0-50.0 % Monocytes (%) (Auto) 14.3 H 0.0-12.0 % Eosinophils (%) (Auto) 5.9 0.0-7.0 % Basophils (%) (Auto) 0.7 0.0-2.0 % Neutrophils # (Auto) 3.5 1.6-8.6 10 ^3/uL Lymphocytes # (Auto) 1.3 0.4-5.4 10 ^3/uL Monocytes # (Auto) 0.9 0-1.3 10 ^3/uL Eosinophils # (Auto) 0.4 0-0.8 10 ^3/uL Basophils # (Auto) 0 0-0.2 10 ^3/uL Nucleated Red Blood Cells 0.2 % POC Glucose 139 H 70-106 mg/dl Sodium Level 140 136-145 mmol/L Potassium Level 3.6 3.5-5.1 mmol/L Chloride Level 99 98-107 mmol/L Carbon Dioxide Level 30 20-31 mmol/L Anion Gap 11 5-15 Blood Urea Nitrogen 14 9-23 mg/dL Creatinine 1.08 0.700-1.30 mg/dL Glomerular Filtration Rate Calc 71 >90 mL/min BUN/Creatinine Ratio 13.0 10.0-20.0 Serum Glucose 129 H 74-106 mg/dL Calcium Level 9.4 8.7-10.4 mg/dL Urine Color Yellow Yellow Urine Clarity Clear Clear Urine pH 5.5 5.0-9.0 Urine Specific [place] 1.026 1.001-1.035 Urine Protein Trace H Negative Urine Ketones Negative Negative Urine Blood Negative Negative /uL Urine Nitrite Negative Negative Urine Bilirubin Negative Negative Urine Urobilinogen 6 Negative mg/dL Urine Leukocyte Esterase Trace Negative /uL Urine RBC None seen 0 - 3 /hpf Urine Microscopic WBC 5 H 0-3 /HPF Urine Squamous Epithelial Cells Few <5 /hpf Urine Bacteria None seen None Seen /hpf Urine Glucose Normal Normal mg/dL Examination: GENERAL:Abnormal, HEENT:Normal, NECK:Normal, LUNGS:Normal, CVS:Abnormal, ABDOMEN:Abnormal, MSK:Abnormal, SKIN:Normal, NEURO:Abnormal, :Abnormal Problem List/Assessment/Plan Problems: (1) Lumbar spinal stenosis Assessment and Plan Diagnosis : Severe central canal lumbar spinal stenosis with incpacitating neurogenic claudication causing admission for pain control and due to inability to ambulate This patient is not a surgical candidate at present. One attempt has already been recently made without success to the point that we couldn't even intubate the patient without putting his life at risk The recommendations are to focus on his health and to control his pain through a pain management consult no invasive treatment for his spine during this admission. If unable to go home, a SNF transfer would be the best option. Of note, he has a heavy alcohol history and I am strongly recommending the the admitting service take care to take steps (such as an iv banana bag) to mitigate the risks of alcohol withdrawls. Plan discussed with Plan discussed with: Patient GURU GONZALES MD Jun 07, 2025 08:20
[2025-06-07 09:30] LABS: Chloride 101 mmol/L (98-107); Potassium 3.7 mmol/L (3.5-5.1); Sodium 141 mmol/L (136-145)
[2025-06-07 09:31] LABS: Anion Gap 9 (5-15); Calcium 9.5 mg/dL (8.7-10.4)
[2025-06-07 09:36] LABS: BUN/Creatinine Ratio 10.5 (10.0-20.0); Blood Urea Nitrogen 11 mg/dL (9-23); Carbon Dioxide 31 mmol/L (20-31); Glucose 132 mg/dL (74-106)
[2025-06-07] MEDS: THIAMINE HCL 100 MG TAB PO SCH (10:54)
[2025-06-07] MEDS: MULTIPLE VITAMIN TAB PO SCH (10:55)
[2025-06-07] MEDS: POTASSIUM CHLORIDE 8 MEQ TAB PO SCH (10:55)
--- NOTE | 2025-06-07 11:00 | DVHINCON2 ---
Date of service: Jun 07, 2025 History of Present Illness 75 yo M with hx of chronic afib, here for back pain and preop eval. pt saw dr taylor last month and had cv workup. tele shows afib Past Medical History reviewed Family History: Cerebrovascular accident (CVA) G8 MOTHER Allergies: Coded Allergies: Penicillins (Unverified Allergy, Unknown, 04/23/25) Sulfa Antibiotics (Unverified Allergy, Unknown, 04/23/25) Zolpidem (Unverified Adverse Reaction, Severe, hallucinations, 04/23/25) Home Meds Reported Medications Apixaban Base (ELIQUIS) 2.5 Mg Tab, 2.5 MG PO BID, TAB 04/23/25 Omeprazole (Omeprazole Dr) 40 Mg Cap, 40 MG PO DAILY, CAP 04/23/25 Metformin Hydrochloride (Metformin Hcl) 500 Mg Tab, 500 MG PO BID, TAB 04/23/25 Carvedilol (Carvedilol) 25 Mg Tab, 25 MG PO BID, TAB 04/23/25 Furosemide (Lasix) 20 Mg Tb, 20 MG PO DAILY, TAB 04/23/25 Gabapentin (Neurontin) 400 Mg Cap, 800 MG PO TID, CAP 04/23/25 Pregabalin (Lyrica) 100 Mg Cap, 100 MG PO TID, CAP 04/23/25 Current Medications Current Medications Medications (Trade) Dose Ordered Sig/Dorita Route PRN Reason Start Time Stop Time Status Last Admin Folic Acid 1 mg/ Multivitamins 10 ml/Magnesium Sulfate 8 meq/ Thiamine HCl 100 mg/Dextrose 1,013.2 ml @ 100.001 mls/hr DAILY@1800 INJ 06/06/25 18:00 06/06/25 17:14 Chlordiazepoxide HCl (Librium Capsule) 50 mg Q12HR PO 06/07/25 10:00 06/07/25 22:01 Chlordiazepoxide HCl (Librium Capsule) 25 mg Q12HR PO 06/08/25 10:00 06/08/25 22:01 Chlordiazepoxide HCl (Librium Capsule) 25 mg QAM PO 06/09/25 07:00 06/09/25 07:01 Thiamine HCl 100 mg DAILY PO 06/07/25 10:00 Multivitamins (Mvi Tab) 1 tab DAILY PO 06/07/25 10:00 Potassium Chloride (Klor-Con Tablet) 8 meq DAILY PO 06/07/25 10:00 Review of Systems 10 pt ros otherwise negative Vital Signs Vital Signs Date Time Temp Pulse Resp B/P (MAP) Pulse Ox O2 Delivery O2 Flow Rate FiO2 06/07/25 08:58 97.2 59 16 101/59 (73) 93 97.2 06/07/25 08:00 Room Air* 0 21 Physical Exam nad s1 s2 irregulra ctab soft nt/nd no edema Labs/Diagnostic Data Labs Test 06/07/25 08:31 06/07/25 06:16 06/07/25 04:42 06/05/25 20:31 Range/Units Sodium Level 141 136-145 mmol/L Potassium Level 3.7 3.5-5.1 mmol/L Chloride Level 101 98-107 mmol/L Carbon Dioxide Level 31 20-31 mmol/L Anion Gap 9 5-15 Blood Urea Nitrogen 11 9-23 mg/dL Creatinine 1.05 0.700-1.30 mg/dL Glomerular Filtration Rate Calc 74 >90 mL/min BUN/Creatinine Ratio 10.5 10.0-20.0 Serum Glucose 132 H 74-106 mg/dL Calcium Level 9.5 8.7-10.4 mg/dL White Blood Count 6.1 4.4-10.8 10^3/uL Red Blood Count 4.45 L 4.5-5.90 10^6/uL Hemoglobin 15.1 13.5-17.5 g/dL Hematocrit 45.1 41.0-53.0 % Mean Corpuscular Volume 101.4 H 80.0-100.0 fL Mean Corpuscular Hemoglobin 34.0 H 28.0-32.0 pg Mean Corpuscular Hemoglobin Concent 33.5 32.0-36.0 g/dL Red Cell Distribution Width 15.6 H 11.8-14.3 % Platelet Count 164 140-450 10^3/uL Mean Platelet Volume 9.2 6.9-10.8 fL Neutrophils (%) (Auto) 57.4 37.0-80.0 % Lymphocytes (%) (Auto) 21.7 10.0-50.0 % Monocytes (%) (Auto) 14.3 H 0.0-12.0 % Eosinophils (%) (Auto) 5.9 0.0-7.0 % Basophils (%) (Auto) 0.7 0.0-2.0 % Neutrophils # (Auto) 3.5 1.6-8.6 10 ^3/uL Lymphocytes # (Auto) 1.3 0.4-5.4 10 ^3/uL Monocytes # (Auto) 0.9 0-1.3 10 ^3/uL Eosinophils # (Auto) 0.4 0-0.8 10 ^3/uL Basophils # (Auto) 0 0-0.2 10 ^3/uL Nucleated Red Blood Cells 0.2 % POC Glucose 139 H 70-106 mg/dl Urine Color Yellow Yellow Urine Clarity Clear Clear Urine pH 5.5 5.0-9.0 Urine Specific [place] 1.026 1.001-1.035 Urine Protein Trace H Negative Urine Ketones Negative Negative Urine Blood Negative Negative /uL Urine Nitrite Negative Negative Urine Bilirubin Negative Negative Urine Urobilinogen 6 Negative mg/dL Urine Leukocyte Esterase Trace Negative /uL Urine RBC None seen 0 - 3 /hpf Urine Microscopic WBC 5 H 0-3 /HPF Urine Squamous Epithelial Cells Few <5 /hpf Urine Bacteria None seen None Seen /hpf Urine Glucose Normal Normal mg/dL Assessment afib preop eval ?hypotension etoh abuse Plan/Recommendation check ecg and echo get records from [facility] clinic or consult primary cards to risk stratify pt avoid oral blood thinners for now, Plan discussed with: Patient AC BAXTER MD Jun 07, 2025 11:00
--- NOTE | 2025-06-07 12:10 | DVHPN2 ---
Progress Note - Dictate Date Seen: Jun 07, 2025 Medical Necessity Reason Pt with a Central, PICC or Fol: No Subjective He is clinically stable but still feels weak in lower extremities. His is at bedside. Apparently patient has lost drink was more than five days ago and he is on outpatient naltrexone for withdrawal treatment for . Patient apparently evaluated at Dr. Stevenson his office last week had echocardiogram and stress test and cleared for lumbar spine surgery in per . vital signs Vital Sign Date Time Temp Pulse Resp B/P (MAP) Pulse Ox O2 Delivery O2 Flow Rate FiO2 06/07/25 10:57 68 138/52 06/07/25 08:58 97.2 16 93 97.2 06/07/25 08:00 Room Air* 0 21 Total Intake and Output 06/06/25 06/06/25 06/07/25 15:00 23:00 07:00 Intake Total 100 ml Output Total 300 ml 400 ml 900 ml Balance -300 ml -300 ml -900 ml medications Current Medications Medications Dose Ordered Sig/Dorita Route Start Time Stop Time Status Last Admin Dose Admin Docusate Sodium 100 mg BIDPRN PRN PO 06/06/25 00:45 Acetaminophen 650 mg Q6HP PRN PO 06/06/25 00:45 Acetaminophen/ Hydrocodone Bitart 1 tab Q6HP PRN PO 06/06/25 00:45 Ondansetron HCl 4 mg Q4HP PRN IV 06/06/25 00:45 Nitroglycerin 0.4 mg Q5MINP PRN SL 06/06/25 00:45 Morphine Sulfate 2 mg Q30M PRN IV 06/06/25 00:45 Folic Acid 1 mg/ Multivitamins 10 ml/Magnesium Sulfate 8 meq/ Thiamine HCl 100 mg/Dextrose 1,013.2 ml @ 100.001 mls/hr DAILY@1800 INJ 06/06/25 18:00 06/06/25 17:14 100.001 MLS/HR Chlordiazepoxide HCl 50 mg Q12HR PO 06/07/25 10:00 06/07/25 22:01 06/07/25 10:54 50 MG Chlordiazepoxide HCl 25 mg Q12HR PO 06/08/25 10:00 06/08/25 22:01 Chlordiazepoxide HCl 25 mg QAM PO 06/09/25 07:00 06/09/25 07:01 Gabapentin 300 mg TID PO 06/06/25 06:00 06/07/25 04:39 300 MG Diagnostic Test (Pha) 1 strip ACHS 06/06/25 07:00 06/07/25 11:00 1 STRIP Insulin Human Regular ACHS SC 06/06/25 07:00 06/07/25 11:23 2 UNITS Dextrose 50 ml UD PRN IV 06/06/25 00:45 Furosemide 20 mg DAILY PO 06/06/25 10:00 06/07/25 10:55 20 MG Pantoprazole Sodium 40 mg DAILY IV 06/06/25 10:00 06/07/25 10:54 40 MG Carvedilol 25 mg Q12HR PO 06/06/25 10:00 06/07/25 10:57 25 MG Thiamine HCl 100 mg DAILY PO 06/07/25 10:00 06/07/25 10:54 100 MG Multivitamins 1 tab DAILY PO 06/07/25 10:00 06/07/25 10:55 1 TAB Potassium Chloride 8 meq DAILY PO 06/07/25 10:00 06/07/25 10:55 8 MEQ objective Comfortable in bed without any acute complaints. at bedside. HEENT neck supple no JVD. Heart regular rate and rhythm S1-S2. Lungs fair air movement without rales wheezes. Abdomen soft obese positive bowel sounds. Extremities no edema positive pulses. 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 We will review medical records from Dr. Graham payne office. Patient given cardiac cleared he should be able to undergo lumbar spine surgery by orthopedic surgeon as appropriate. This is discussed with the and patient at bedside. Meantime we will resume his outpatient alcohol withdrawal treatment that he has started a week ago per while he is in the hospital. I will stop the Librium. Continue banana bag once a day. Continue NPO for possible surgery. Further clinical management per clinical course. Discussed with the patient/nurse as well as at bedside regarding care plan. Problems(with codes): (1) Lumbar sprain (2) Difficulty walking (3) Lumbar spinal stenosis Plan discussed with: Patient, Spouse AMAYA ABREU MD Jun 07, 2025 12:10
[2025-06-07] MEDS: NALTREXONE 50 MG TAB PO SCH (18:02)
[2025-06-08] VITALS (7 sets, daily range): BP systolic 94–128; BP diastolic 59–86; PULSE 67–87; RESP 13–18; TEMP 97.7–98.6; O2SAT 93–96
[2025-06-08 06:11] LABS: Hematocrit 43.9 % (41.0-53.0); Hemoglobin 14.6 g/dL (13.5-17.5); Mean Corpuscular Hemoglobin 33.4 pg (28.0-32.0); Mean Corpuscular Volume 100.3 fL (80.0-100.0); Nucleated Red Blood Cells % 0.0 %
[2025-06-08 06:26] LABS: Anion Gap 9 (5-15); Calcium 9.1 mg/dL (8.7-10.4); Carbon Dioxide 30 mmol/L (20-31); Chloride 101 mmol/L (98-107); Sodium 140 mmol/L (136-145)
[2025-06-08 06:32] LABS: BUN/Creatinine Ratio 10.1 (10.0-20.0); Blood Urea Nitrogen 10 mg/dL (9-23); Glucose 145 mg/dL (74-106); Potassium 3.3 mmol/L (3.5-5.1)
--- NOTE | 2025-06-08 11:55 | DVHSR ---
APPROVED REPORT EXAM: Two-dimensional and M-mode echocardiogram with Doppler and color Doppler. Blood Pressure: 138/52 mmHg INDICATION CHF RISK FACTORS Height: 5'10, Weight: 181 DIMENSIONS LVDd 4.1 (3.8-5.7cm) LA (2D) 3.7 (1.9-4.0cm) Aortic Root 3.1 (2.0-3.7cm) LVDs 3.0 (2.5-4.0cm) LA (MM) (1.9-4.0cm) Aortic Cusp Exc 1.8 (1.5-2.0cm) EF (%) 54.0 (55-70%) Rt. Atrium 3.4 (1.9-4.0cm) Asc. Aorta 3.0 cm IVSd 1.5 (0.7-1.1cm) RV (D) (1.8-2.4cm) PWd 1.2 (0.7-1.1cm) Mitral Valve Mitral Mitral Stenosis E wave 0.75m/s MV Mean GR. mmHg A wave 0.36m/s MV Peak GR. mmHg E/A ratio 2.1 2D MVA cm2 DECEL Time 186ms PRESS 1/2 Time ms Aortic Valve Aortic Valve Aortic Stenosis V1 0.52m/s AO Mean GR. mmHg V2 1.08m/s AO Peak GR. 5mmHg LVOT Diameter 2.1 (1.8-2.4cm) Doppler MARY BETH 1.67cm2 Pulmonic Valve V2 0.62m/s Tricuspid Valve TR Velocity 1.97m/s RVSP 15mmHg Other Information Technically limited study due to body habitus. Conclusion lvef 50% low normal function mild to moderate LVH RV enlarged biatrial enlargement no severe valve abnormalities noted
--- NOTE | 2025-06-08 14:56 | DVHPN2 ---
Progress Note - Dictate Date Seen: Jun 08, 2025 Medical Necessity Reason Pt with a Central, PICC or Fol: No Subjective He is clinically stable but still feels weak in lower extremities. He is as well as spine surgeon spine surgeon felt patient is high-risk for any surgical intervention and recommending pain management and physical for his lower extremity weakness with a nonsurgical management. This is discussed with the patient. vital signs Vital Sign Date Time Temp Pulse Resp B/P (MAP) Pulse Ox O2 Delivery O2 Flow Rate FiO2 06/08/25 12:15 67 97/66 06/08/25 09:00 98.2 18 96 98.2 06/08/25 08:00 Room Air* 0 21 Total Intake and Output 06/07/25 06/07/25 06/08/25 15:00 23:00 07:00 Intake Total 0 ml Output Total 1700 ml Balance -1700 ml medications Current Medications Medications Dose Ordered Sig/Dorita Route Start Time Stop Time Status Last Admin Dose Admin Docusate Sodium 100 mg BIDPRN PRN PO 06/06/25 00:45 Acetaminophen 650 mg Q6HP PRN PO 06/06/25 00:45 Acetaminophen/ Hydrocodone Bitart 1 tab Q6HP PRN PO 06/06/25 00:45 Ondansetron HCl 4 mg Q4HP PRN IV 06/06/25 00:45 Nitroglycerin 0.4 mg Q5MINP PRN SL 06/06/25 00:45 Morphine Sulfate 2 mg Q30M PRN IV 06/06/25 00:45 Folic Acid 1 mg/ Multivitamins 10 ml/Magnesium Sulfate 8 meq/ Thiamine HCl 100 mg/Dextrose 1,013.2 ml @ 100.001 mls/hr DAILY@1800 INJ 06/06/25 18:00 06/07/25 18:02 100.001 MLS/HR Gabapentin 300 mg TID PO 06/06/25 06:00 06/07/25 21:21 300 MG Diagnostic Test (Pha) 1 strip ACHS 06/06/25 07:00 06/08/25 11:22 1 STRIP Insulin Human Regular ACHS SC 06/06/25 07:00 06/07/25 11:23 2 UNITS Dextrose 50 ml UD PRN IV 06/06/25 00:45 Furosemide 20 mg DAILY PO 06/06/25 10:00 06/08/25 11:14 20 MG Carvedilol 25 mg Q12HR PO 06/06/25 10:00 06/08/25 11:15 25 MG Thiamine HCl 100 mg DAILY PO 06/07/25 10:00 06/08/25 11:15 100 MG Multivitamins 1 tab DAILY PO 06/07/25 10:00 06/08/25 11:15 1 TAB Potassium Chloride 8 meq DAILY PO 06/07/25 10:00 06/08/25 11:14 8 MEQ Patient Own Medication 1 DAILY PO 06/07/25 18:00 06/08/25 10:00 1 Apixaban 5 mg BID PO 06/08/25 22:00 objective Comfortable in bed without any acute complaints. at bedside. HEENT neck supple no JVD. Heart regular rate and rhythm S1-S2. Lungs fair air movement without rales wheezes. Abdomen soft obese positive bowel sounds. Extremities no edema positive pulses. Able to lift his legs against gravity without any problems. 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 Given the no surgery is being done I will resume his anticoagulation with Eliquis for chronic AFib. We will get physical therapy evaluation to assess his weakness and ambulatory status. We will plan to discharge him to a [facility] facility in the next 24 hours. Meantime continue rest of supportive care and treatment as he is on. Discussed with the patient as well as nurse today regarding his care plan. Plan discussed with: Patient AMAYA ABREU MD Jun 08, 2025 14:56
[2025-06-08] MEDS: POTASSIUM CHL 20 Meq TABLET PO ONE (15:20)
[2025-06-08] MEDS: APIXABAN 5 MG TAB PO SCH (23:08)
[2025-06-09] VITALS (8 sets, daily range): BP systolic 93–126; BP diastolic 58–78; PULSE 74–88; RESP 17–19; TEMP 97.6–98.6; O2SAT 93–98
[2025-06-09 07:45] LABS: Hemoglobin 15.2 g/dL (13.5-17.5); Nucleated Red Blood Cells % 0.2 %
[2025-06-09 07:47] LABS: Hematocrit 44.8 % (41.0-53.0); Mean Corpuscular Hemoglobin 34.0 pg (28.0-32.0); Mean Corpuscular Volume 100.0 fL (80.0-100.0)
[2025-06-09 07:51] LABS: Anion Gap 10 (5-15); Carbon Dioxide 28 mmol/L (20-31); Chloride 100 mmol/L (98-107); Potassium 4.4 mmol/L (3.5-5.1); Sodium 138 mmol/L (136-145)
[2025-06-09 07:53] LABS: Calcium 9.3 mg/dL (8.7-10.4)
[2025-06-09 07:57] LABS: BUN/Creatinine Ratio 7.5 (10.0-20.0); Blood Urea Nitrogen 10 mg/dL (9-23)
[2025-06-09 07:59] LABS: Glucose 145 mg/dL (74-106)
--- NOTE | 2025-06-09 15:08 | DVHDS2 ---
Discharge Summary Date of Admission Jun 06, 2025 at 00:37 Date of Discharge: Jun 09, 2025 Labs/Diagnostic Data: Laboratory Results Test 06/09/25 11:10 06/09/25 07:04 06/05/25 20:31 POC Glucose 161 mg/dl (70-106) White Blood Count 5.9 10^3/uL (4.4-10.8) Red Blood Count 4.47 10^6/uL (4.5-5.90) Hemoglobin 15.2 g/dL (13.5-17.5) Hematocrit 44.8 % (41.0-53.0) Mean Corpuscular Volume 100.0 fL (80.0-100.0) Mean Corpuscular Hemoglobin 34.0 pg (28.0-32.0) Mean Corpuscular Hemoglobin Concent 33.9 g/dL (32.0-36.0) Red Cell Distribution Width 15.8 % (11.8-14.3) Platelet Count 225 10^3/uL (140-450) Mean Platelet Volume 9.2 fL (6.9-10.8) Neutrophils (%) (Auto) 52.8 % (37.0-80.0) Lymphocytes (%) (Auto) 24.1 % (10.0-50.0) Monocytes (%) (Auto) 18.0 % (0.0-12.0) Eosinophils (%) (Auto) 4.3 % (0.0-7.0) Basophils (%) (Auto) 0.8 % (0.0-2.0) Neutrophils # (Auto) 3.1 10 ^3/uL (1.6-8.6) Lymphocytes # (Auto) 1.4 10 ^3/uL (0.4-5.4) Monocytes # (Auto) 1.1 10 ^3/uL (0-1.3) Eosinophils # (Auto) 0.3 10 ^3/uL (0-0.8) Basophils # (Auto) 0 10 ^3/uL (0-0.2) Nucleated Red Blood Cells 0.2 % Sodium Level 138 mmol/L (136-145) Potassium Level 4.4 mmol/L (3.5-5.1) Chloride Level 100 mmol/L (98-107) Carbon Dioxide Level 28 mmol/L (20-31) Anion Gap 10 (5-15) Blood Urea Nitrogen 10 mg/dL (9-23) Creatinine 1.33 mg/dL (0.700-1.30) Glomerular Filtration Rate Calc 55 mL/min (>90) BUN/Creatinine Ratio 7.5 (10.0-20.0) Serum Glucose 145 mg/dL (74-106) Calcium Level 9.3 mg/dL (8.7-10.4) Urine Color Yellow (Yellow) Urine Clarity Clear (Clear) Urine pH 5.5 (5.0-9.0) Urine Specific [place] 1.026 (1.001-1.035) Urine Protein Trace (Negative) Urine Ketones Negative (Negative) Urine Blood Negative /uL (Negative) Urine Nitrite Negative (Negative) Urine Bilirubin Negative (Negative) Urine Urobilinogen 6 mg/dL (Negative) Urine Leukocyte Esterase Trace /uL (Negative) Urine RBC None seen /hpf (0 - 3) Urine Microscopic WBC 5 /HPF (0-3) Urine Squamous Epithelial Cells Few /hpf (<5) Urine Bacteria None seen /hpf (None Seen) Urine Glucose Normal mg/dL (Normal) Other Laboratory Tests 06/09/25 07:04 Brief Hx & Hospital Course: 75-year-old male with past medical history of alcohol dependence, AFib on Eliquis, hypertension, chronic back pain presents with complaints of generalized weakness worsening over the previous 3 days. Patient endorses he is having difficulty standing up in being able to walk. Patient was recently scheduled for lumbar spine surgery on April 26, 2025. However became hemodynamically unstable on the surgical table and procedure was canceled. Patient went to urgent care earlier in the day were imaging found epidural lipomatosis within the lumbar spine causing severe spinal canal stenosis L3-L4, moderate spinal canal stenosis L4-L5, moderate spinal canal stenosis L2-L3. During the emergency department evaluation CBC is unremarkable. CMP is unremarkable. Patient endorses that the last time he took a drink was the morning before going to urgent care. Normally drinks vodka. At this time the patient is using wheelchair to be able to get around. There are no complaints of fevers, chills, confusion, dizziness, syncope, chest pain, palpitations, nausea, vomiting, abdominal pain, bowel or urinary incontinence, recent traumatic injury, falls. 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 Orthopedic surgeon felt he is at high-risk for surgery for lumbar spinal stenosis and recommended conservative medical treatment with the physical therapy and pain management. This is discussed with the patient and he verbalized understanding. Patient is participating in physical therapy ambulated 15 ft today. Given his weakness it is felt he would benefit from going to a [facility] facility for further physical therapy. Patient is also known to be alcoholic with a chronic alcohol use disorder. Patient recently started on withdrawal medication with the naltrexone for patient/his and he has been taking it for about a week once a day tablet. Patient is advised to continue this and have outpatient follow up with the drug rehab programs. Patient and family verbalized understanding his hospital diagnosis, treatment, discharge medications, discharge instructions and agree with the discharge follow-up plan of care as outlined. Consultation - Spinal Surgery Date Seen: Jun 07, 2025 Referring Physician Referring Physician admitting doctor History of Present Illness History of Present Illness This unfortunate patient was seen in our clinic and arrangements made for elective lumbar spine surgery However , upon intubation,his BP immediately fell to dangerous levels and the surgery had to be stopped and the patient immediately extubated He has severe cardiomyopathy, likely dilated due to the fact the patient states he drinks a 5th of hard alcohol daily and has no plans to stop. he has a history of severe lumbar spinal stenosis with neurogenic claudication and his current symptoms ae consistent with the historical ones. no new symptoms relative to the day his surgery was aborted Problems: (1) Lumbar spinal stenosis Assessment and Plan Diagnosis : Severe central canal lumbar spinal stenosis with incpacitating neurogenic claudication causing admission for pain control and due to inability to ambulate This patient is not a surgical candidate at present. One attempt has already been recently made without success to the point that we couldn't even intubate the patient without putting his life at risk The recommendations are to focus on his health and to control his pain through a pain management consult no invasive treatment for his spine during this admission. If unable to go home, a SNF transfer would be the best option. Of note, he has a heavy alcohol history and I am strongly recommending the the admitting service take care to take steps (such as an iv banana bag) to mitigate the risks of alcohol withdrawls. Plan discussed with Plan discussed with: Patient GURU GONZALES MD Jun 07, 2025 08:20 Consults/Reason for consult PROCEDURE: MRI LUMBAR SPINE WO CONTRAST Indication: spinal stenosis COMPARISON: MR LUMBAR SPINE WO/W on DOS: 06/05/25 TECHNIQUE: Multiplanar multisequence images of the the lumbar spine are obtained. FINDINGS: For the purpose of this examination, there are 5 lumbar vertebral body types counting from the lumbosacral junction. The lumbar vertebral body heights are maintained. There is moderate multilevel disc space narrowing and desiccation. No abnormal marrow edema. Conus terminates at the L1 level. There is prominent posterior epidural fat. Alignment is grossly preserved. 9 mm L2 vertebral body hemangioma. Are T12-L1: 3 mm disc protrusion. Mild facet and flavum hypertrophy. No spinal canal stenosis. Mild bilateral neural foraminal stenosis. L1-2: 2 mm disc protrusion. Mild facet and flavum hypertrophy. No spinal canal stenosis. Mild bilateral neural foraminal stenosis. L2-3: 3 mm disc protrusion. Cnpq-[id number]-jgkckpsx facet and flavum hypertrophy pick. There is prominent posterior epidural fat. Thecal sac measures 7 mm AP. Moderate spinal canal stenosis. Mild bilateral neural foraminal stenosis. L3-4: 3 mm disc protrusion. Moderate facet and flavum hypertrophy. There is prominent posterior epidural fat. Thecal sac measures 6 mm AP. Moderate to severe spinal canal stenosis. Moderate bilateral neural foraminal stenosis. L4-5: 3 mm disc protrusion. Moderate to severe facet and flavum hypertrophy. Thecal sac measures 7 mm AP. Moderate spinal canal stenosis. Moderate bilateral neural foraminal stenosis, [id number]-[id number]. L5-S1: 3 mm disc protrusion. [id number]-lg-[id number] facet and flavum hypertrophy. No spinal canal stenosis. Upaq-fe-jhaevmzr bilateral neural foraminal stenosis. IMPRESSION: Moderate lumbar degenerative disc disease. Prominent posterior epidural fat as described above. Moderate to severe spinal canal stenosis L3-4. Moderate spinal canal stenosis at L2-3, L4-5. Multilevel neural foraminal stenosis as described. ATED BY: NURIA HARTMANN MD DICTATED DATE/TIME: 06/06/25 1449 Operations or Procedures EXAM: Two-dimensional and M-mode echocardiogram with Doppler and color Doppler. Blood Pressure: 138/52 mmHg INDICATION CHF RISK FACTORS Height: 5'10, Weight: 181 DIMENSIONS LVDd 4.1 (3.8-5.7cm) LA (2D) 3.7 (1.9-4.0cm) Aortic Root 3.1 (2.0- 3.7cm) LVDs 3.0 (2.5-4.0cm) LA (MM) (1.9-4.0cm) Aortic Cusp Exc 1.8 (1.5- 2.0cm) EF (%) 54.0 (55-70%) Rt. Atrium 3.4 (1.9-4.0cm) Asc. Aorta 3.0 cm IVSd 1.5 (0.7-1.1cm) RV (D) (1.8-2.4cm) PWd 1.2 (0.7-1.1cm) Mitral Valve Mitral Mitral Stenosis E wave 0.75m/s MV Mean GR. mmHg A wave 0.36m/s MV Peak GR. mmHg E/A ratio 2.1 2D MVA cm2 DECEL Time 186ms PRESS 1/2 Time ms Aortic Valve Aortic Valve Aortic Stenosis V1 0.52m/s AO Mean GR. mmHg V2 1.08m/s AO Peak GR. 5mmHg LVOT Diameter 2.1 (1.8-2.4cm) Doppler MARY BETH 1.67cm2 Pulmonic Valve V2 0.62m/s Tricuspid Valve TR Velocity 1.97m/s RVSP 15mmHg Other Information Technically limited study due to body habitus. Conclusion lvef 50% low normal function mild to moderate LVH RV enlarged biatrial enlargement no severe valve abnormalities noted SIGNED BY: AC BAXTER MD SIGNED DATE/TIME: 06/08/25 1476 Condition at Discharge: Stable Final Diagnosis/Problems List Bilateral lower extremity weakness due to severe lumbar spine stenosis Lumbar spinal stenosis recommend physical therapy and medical management Chronic alcohol use disorder continue naltrexone as withdrawal therapy Chronic atrial fibrillation rate controlled continue beta hossein and anticoagulation Discharge Disposition: Halfway Facility Discharge Instruct/Medications Diet: Consistent carbohydrate, Cardiac 2g Na,low cholest Activity: No Restrictions, As Tolerated Follow Up/Referral: PCP 2 weeks for alcohol rehab programs Medications: see transfer med rec list Scheduled Apixaban Base (Eliquis), 2.5 MG PO BID, (Reported) Carvedilol (Carvedilol), 25 MG PO BID, (Reported) Furosemide (Lasix), 20 MG PO DAILY, (Reported) Gabapentin (Neurontin), 800 MG PO TID, (Reported) Metformin Hydrochloride (Metformin Hcl), 500 MG PO BID, (Reported) Omeprazole (Omeprazole Dr), 40 MG PO DAILY, (Reported) Pregabalin (Lyrica), 100 MG PO TID, (Reported) Discharge Statement: "Patient was advised to return to the ER or call 911 if any headaches, dizziness, shortness of breath, chest pain, abdominal pain, bleeding, fevers, or worsening of medical condition. Patient was counseled about treatment plan, medications, possible side effects, patientverbalized understanding. All questions were answered to the best of my ability. This discharge took greater then 30 minutes in planning, reviewing documentation, counseling the patient, and discussing with other team members." ASSESSMENT ASSESSMENT Assessment AMAYA ABREU MD Jun 09, 2025 15:08
== END 2025-06-09 21:50 | DRG 552 ==
LOC: ER 19:35 → OVERFLOW 06-06 00:37 → TELE-WESTW 06-06 03:41
PROVIDERS: ADMIT Internal Medicine; ATTEND Internal Medicine
DX: M48.062 Spinal stenosis, lumbar region with neurogenic claudication (principal); I42.9 Cardiomyopathy, unspecified; I11.0 Hypertensive heart disease with heart failure; Z79.01 Long term (current) use of anticoagulants; E11.9 Type 2 diabetes mellitus without complications; F10.20 Alcohol dependence, uncomplicated; I48.20 Chronic atrial fibrillation, unspecified; E88.2 Lipomatosis, not elsewhere classified; R26.2 Difficulty in walking, not elsewhere classified; G89.29 Other chronic pain; Y90.9 Presence of alcohol in blood, level not specified; I25.10 Atherosclerotic heart disease of native coronary artery without angina pectoris; Z82.3 Family history of stroke; Z88.0 Allergy status to penicillin; Z88.2 Allergy status to sulfonamides; Z88.8 Allergy status to other drugs, medicaments and biological substances; Z79.899 Other long term (current) drug therapy
CPT/HCPCS: 36415; 72148; 80048; 81001; 82962; 85025; 93306; 97163; G0378; J1815; J2470